=== PATIENT | female | born 1955 | race Caucasian/White ===

== ENCOUNTER 2020-02-18 06:09 | Outpatient (REF) | payer MEDICARE, SELFPAY ==
[2020-02-18 11:13] LABS: MANUAL DIFF FLAG NO
[2020-02-18 11:22] LABS: Basophils Percent Auto 0.5 % (0-2); Eosinophils Absolute Auto 0.1 X10*3/uL (0.0-0.4); Eosinophils Percent Auto 3.5 % (0-4); Hematocrit 39.9 % (37-47); Hemoglobin 12.7 g/dl (12.0-16.0); Imm Gran Abs Auto 0.01 X10*3/uL (0.00-0.03); Imm Gran Pct Auto 0.2 % (0.0-0.4); Lymphocytes Absolute Auto 1.4 X10*3/uL (1.2-4.9); Lymphocytes Percent Auto 34.7 % (20-40); Mean Corpuscular HGB Conc 31.8 g/dl (31.0-35.0); Mean Corpuscular Hemoglobin 29.6 pg (27.0-33.0); Mean Platelet Volume 10.5 fL (9.4-12.3); Monocytes Absolute Auto 0.3 X10*3/uL (0.1-1.2); Monocytes Percent Auto 7.4 % (2-11); Neutrophils Absolute Auto 2.2 X10*3/uL (2.0-8.3); Neutrophils Percent Auto 53.7 % (45-73); Platelet Count 268 X10*3/uL (160-400); Red Blood Count 4.29 X10*6/uL (4.20-5.50); Red Cell Distribution Width 13.1 % (11.0-16.0)
[2020-02-18 11:29] LABS: Glucose Urine UA NEG (NEG); Leukocyte Esterase Urine NEG (NEG); Nitrite Urine NEG (NEG); PH 6.5 (5.0-8.0); Urine Blood NEG (NEG); Urine Ketones NEG (NEG); Urine Protein NEG (NEG-TRACE)
[2020-02-18 11:32] LABS: Appearance Urine CLEAR; Color Urine YELLOW
[2020-02-18 11:39] LABS: Alanine Aminotransferase 20 U/L (0-31); Albumin Level 4.6 g/dL (3.5-5.0); Alkaline Phosphatase 64 U/L (39-117); Anion Gap 14 (12-20); Aspartate Amino Transferase 24 U/L (5-31); Bilirubin Total 0.5 mg/dL (0.0-1.0); Blood Urea Nitrogen 23 mg/dL (9-16); Calcium 9.2 mg/dL (8.4-10.2); Carbon Dioxide 29 mmol/L (22-29); Chloride 102 mmol/L (96-108); Cholesterol 234 mg/dL; Estimated Glomerular Filt Rate > 60; Glucose Fasting 86 mg/dL (60-99); HDL Cholesterol 105 mg/dL; LDL Cholesterol Calculated 117 mg/dl; Potassium 4.5 mmol/l (3.3-5.1); Sodium 140 mmol/L (135-145); Total Protein 7.2 g/dL (6.5-8.0); Triglycerides 61 mg/dL
== END 2020-02-18 06:10 | disposition home or self-care (01) ==
LOC: HO.HMGCLDS 06:09
PROVIDERS: PCP Internal Medicine; Visit Provider Internal Medicine
DX: E78.00 Pure hypercholesterolemia, unspecified (principal)
CPT/HCPCS: 36415; 80053; 80061; 81003; 85025

== ENCOUNTER 2020-03-27 14:19 | Outpatient (REF) | payer MEDICARE, SELFPAY ==
--- NOTE | 2020-03-27 | XR_ITS ---
EXAMINATION: XR SHOULDER, LEFT CLINICAL INFORMATION: Shoulder pain COMPARISON: None TECHNIQUE: AP external rotation, Grashey, scapular Y, and axillary views of the left shoulder. FINDINGS: No fracture or dislocation. Minimal AC joint degeneration. Diffuse bone demineralization. No abnormal soft tissue calcification. XR/XR shoulder LT min 2V IMPRESSION: Minimal AC joint arthritis. No acute osseous abnormality. Osteopenia.
== END 2020-03-27 14:20 | disposition home or self-care (01) ==
LOC: HO.XRAY 14:19
PROVIDERS: PCP Internal Medicine; Visit Provider Internal Medicine
DX: M25.512 Pain in left shoulder (principal)
CPT/HCPCS: 73030

== ENCOUNTER → 2020-04-08 08:41 | Outpatient (BNVA) | payer MEDICARE, SELFPAY | PROVIDERS: PCP Internal Medicine; Visit Provider Orthopaedic Surgery | DX: M75.42 Impingement syndrome of left shoulder (principal) | CPT/HCPCS: 99202 ==

== ENCOUNTER → 2020-07-03 12:29 | Outpatient (BNVA) | payer MEDICARE, SELFPAY | PROVIDERS: PCP Internal Medicine; Visit Provider Orthopaedic Surgery | DX: M75.42 Impingement syndrome of left shoulder (principal) | CPT/HCPCS: 20610; 99212; J1040 ==

== ENCOUNTER 2021-01-21 06:06 | Outpatient (REF) | payer MEDICARE, SELFPAY ==
[2021-01-21 11:36] LABS: MANUAL DIFF FLAG NO
[2021-01-21 11:57] LABS: Basophils Percent Auto 0.5 % (0-2); Eosinophils Absolute Auto 0.2 X10*3/uL (0.0-0.4); Eosinophils Percent Auto 3.8 % (0-4); Hematocrit 40.6 % (37.0-47.0); Imm Gran Abs Auto 0.01 X10*3/uL (0.00-0.03); Imm Gran Pct Auto 0.2 % (0.0-0.4); Lymphocytes Absolute Auto 1.5 X10*3/uL (1.2-4.9); Lymphocytes Percent Auto 34.2 % (20-40); Mean Corpuscular Hemoglobin 29.1 pg (27.0-33.0); Monocytes Absolute Auto 0.3 X10*3/uL (0.1-1.2); Monocytes Percent Auto 7.2 % (2-11); Neutrophils Absolute Auto 2.4 x10*3/uL (2.0-8.3); Neutrophils Percent Auto 54.1 % (45-73); Platelet Count 299 X10*3/uL (160-400); Red Blood Count 4.46 X10*6/uL (4.20-5.50); Red Cell Distribution Width 13.1 % (11.0-16.0); White Blood Count 4.4 X10*3/uL (4.8-10.8)
[2021-01-21 12:53] LABS: Alanine Aminotransferase 26 U/L (0-31); Albumin Level 4.6 g/dL (3.5-5.0); Alkaline Phosphatase 69 U/L (39-117); Anion Gap 15 (12-20); Aspartate Amino Transferase 28 U/L (5-31); Bilirubin Total 0.6 mg/dL (0.0-1.0); Blood Urea Nitrogen 19 mg/dL (9-16); Calcium 9.5 mg/dL (8.4-10.2); Carbon Dioxide 26 mmol/L (22-29); Chloride 102 mmol/L (96-108); Cholesterol 243 mg/dL; Estimated Glomerular Filt Rate > 60; Glucose Fasting 77 mg/dL (60-99); HDL Cholesterol 101 mg/dL; LDL Cholesterol Calculated 132 mg/dl; Potassium 4.2 mmol/L (3.3-5.1); Sodium 139 mmol/L (135-145); Total Protein 7.4 g/dL (6.5-8.0); Triglycerides 53 mg/dL
== END 2021-01-21 06:07 | disposition home or self-care (01) ==
LOC: HO.HMGCLDS 06:06
PROVIDERS: PCP Internal Medicine; Visit Provider Internal Medicine
DX: E78.00 Pure hypercholesterolemia, unspecified (principal); J30.1 Allergic rhinitis due to pollen
CPT/HCPCS: 36415; 80053; 80061; 85025

== ENCOUNTER 2022-01-24 06:09 | Outpatient (REF) | payer MEDICARE, SELFPAY ==
[2022-01-24 11:38] LABS: MANUAL DIFF FLAG NO
[2022-01-24 11:47] LABS: Hematocrit 40.7 % (37.0-47.0); Hemoglobin 12.8 g/dl (12.0-16.0); Mean Corpuscular HGB Conc 31.4 g/dl (31.0-35.0); Mean Corpuscular Hemoglobin 29.2 pg (27.0-33.0); Mean Corpuscular Volume 92.7 fL (80.0-98.0); Red Blood Count 4.39 X10*6/uL (4.20-5.50); White Blood Count 4.4 X10*3/uL (4.8-10.8)
[2022-01-24 11:48] LABS: Basophils Percent Auto 0.7 % (0-2); Eosinophils Absolute Auto 0.2 X10*3/uL (0.0-0.4); Eosinophils Percent Auto 3.8 % (0-4); Imm Gran Abs Auto 0.01 X10*3/uL (0.00-0.03); Imm Gran Pct Auto 0.2 % (0.0-0.4); Lymphocytes Absolute Auto 1.5 X10*3/uL (1.2-4.9); Lymphocytes Percent Auto 33.6 % (20-40); Mean Platelet Volume 10.3 fL (9.4-12.3); Monocytes Absolute Auto 0.3 X10*3/uL (0.1-1.2); Monocytes Percent Auto 6.8 % (2-11); Neutrophils Absolute Auto 2.4 x10*3/uL (2.0-8.3); Neutrophils Percent Auto 54.9 % (45-73); Platelet Count 265 X10*3/uL (160-400); Red Cell Distribution Width 12.8 % (11.0-16.0)
[2022-01-24 12:27] LABS: Alanine Aminotransferase 21 U/L (0-31); Albumin Level 4.5 g/dL (3.5-5.0); Alkaline Phosphatase 55 U/L (39-117); Anion Gap 10 (12-20); Aspartate Amino Transferase 21 U/L (5-31); Bilirubin Total 0.4 mg/dL (0.0-1.0); Blood Urea Nitrogen 13 mg/dL (9-16); Calcium 9.5 mg/dL (8.4-10.2); Carbon Dioxide 29 mmol/L (22-29); Chloride 104 mmol/L (96-108); Cholesterol 243 mg/dL; Estimated Glomerular Filt Rate > 60; Glucose Fasting 96 mg/dL (60-99); HDL Cholesterol 99 mg/dL; LDL Cholesterol Calculated 130 mg/dl; Potassium 4.1 mmol/L (3.3-5.1); Sodium 139 mmol/L (135-145); Total Protein 6.9 g/dL (6.5-8.0); Triglycerides 72 mg/dL
== END 2022-01-24 06:10 | disposition home or self-care (01) ==
LOC: HO.HMGCLDS 06:09
PROVIDERS: PCP Internal Medicine; Visit Provider Internal Medicine
DX: Z00.00 Encounter for general adult medical examination without abnormal findings (principal)
CPT/HCPCS: 36415; 80053; 80061; 82306; 85025

== ENCOUNTER 2023-01-31 06:03 | Outpatient (REF) | payer MEDICARE, SELFPAY ==
[2023-01-31 11:17] LABS: MANUAL DIFF FLAG NO
[2023-01-31 11:24] LABS: Basophils Percent Auto 0.7 % (0-2); Eosinophils Absolute Auto 0.2 X10*3/uL (0.0-0.4); Eosinophils Percent Auto 3.4 % (0-4); Hematocrit 36.1 % (37.0-47.0); Hemoglobin 11.4 g/dl (12.0-16.0); Imm Gran Abs Auto 0.01 X10*3/uL (0.00-0.03); Imm Gran Pct Auto 0.2 % (0.0-0.4); Lymphocytes Absolute Auto 1.2 X10*3/uL (1.2-4.9); Lymphocytes Percent Auto 26.9 % (20-40); Mean Corpuscular HGB Conc 31.6 g/dl (31.0-35.0); Mean Corpuscular Hemoglobin 28.8 pg (27.0-33.0); Mean Corpuscular Volume 91.2 fL (80.0-98.0); Mean Platelet Volume 9.9 fL (9.4-12.3); Monocytes Absolute Auto 0.3 X10*3/uL (0.1-1.2); Monocytes Percent Auto 7.2 % (2-11); Neutrophils Absolute Auto 2.8 x10*3/uL (2.0-8.3); Neutrophils Percent Auto 61.6 % (45-73); Platelet Count 317 X10*3/uL (160-400); Red Blood Count 3.96 X10*6/uL (4.20-5.50); Red Cell Distribution Width 13.2 % (11.0-16.0); White Blood Count 4.5 X10*3/uL (4.8-10.8)
[2023-01-31 12:13] LABS: Alanine Aminotransferase 22 U/L (0-31); Albumin Level 4.2 g/dL (3.5-5.0); Alkaline Phosphatase 76 U/L (39-117); Anion Gap 10 (12-20); Aspartate Amino Transferase 27 U/L (5-31); Bilirubin Total 0.4 mg/dL (0.0-1.0); Blood Urea Nitrogen 17 mg/dL (9-16); Calcium 9.3 mg/dL (8.4-10.2); Carbon Dioxide 29 mmol/L (22-29); Chloride 104 mmol/L (96-108); Cholesterol 218 mg/dL (<200); Estimated Glomerular Filt Rate > 60; Glucose Fasting 88 mg/dL (60-99); HDL Cholesterol 94 mg/dL (>40); LDL Cholesterol Calculated 112 mg/dL (<100); Sodium 139 mmol/L (135-145); Total Protein 7.2 g/dL (6.5-8.0); Triglycerides 61 mg/dL (<150); Vitamin D 25-OH Total 55.3 ng/mL (>30)
== END 2023-01-31 06:04 | disposition home or self-care (01) ==
LOC: HO.HMGCLDS 06:03
PROVIDERS: PCP Internal Medicine; Visit Provider Internal Medicine
DX: E78.00 Pure hypercholesterolemia, unspecified (principal); M81.0 Age-related osteoporosis without current pathological fracture
CPT/HCPCS: 36415; 80053; 80061; 82306; 85025

== ENCOUNTER 2023-04-14 16:03 | Outpatient (REF) | payer MEDICARE, SELFPAY ==
--- NOTE | ~2023-04-14 | XR_ITS ---
EXAMINATION: XR HAND, RIGHT CLINICAL INFORMATION: Pain right hand, swelling. COMPARISON: None available. TECHNIQUE: PA, lateral, and oblique views of the right hand. FINDINGS: Prominent bony exostosis along the distal aspect of the first metacarpal. Bones are diffusely demineralized. Moderate degenerative changes in the first carpometacarpal joint with joint space narrowing and hypertrophic change. Moderate degenerative changes in scattered IP joints. Punctate calcific densities in the soft tissues adjacent to the joints with examples including the second and fourth DIP joints. XR/XR hand RT min 3V IMPRESSION: 1. Prominent bony exostosis along the distal aspect of the first metacarpal. 2. Moderate degenerative changes in the first carpometacarpal joint and scattered IP joints. 3. Recommend follow up imaging in 10-14 days if fracture is suspected.
== END 2023-04-14 16:04 | disposition home or self-care (01) ==
LOC: HO.XRAY 16:03
PROVIDERS: PCP Internal Medicine; Visit Provider Internal Medicine
DX: M79.641 Pain in right hand (principal); R60.0 Localized edema
CPT/HCPCS: 73130

== ENCOUNTER 2023-04-26 13:34 | Outpatient (REF) | payer MEDICARE, SELFPAY ==
[2023-04-26 16:04] LABS: MANUAL DIFF FLAG NO
[2023-04-26 16:12] LABS: Basophils Percent Auto 0.4 % (0-2); Eosinophils Absolute Auto 0.1 X10*3/uL (0.0-0.4); Eosinophils Percent Auto 1.7 % (0-4); Hematocrit 37.5 % (37.0-47.0); Hemoglobin 12.2 g/dl (12.0-16.0); Imm Gran Abs Auto 0.03 X10*3/uL (0.00-0.03); Imm Gran Pct Auto 0.4 % (0.0-0.4); Lymphocytes Absolute Auto 1.3 X10*3/uL (1.2-4.9); Lymphocytes Percent Auto 18.1 % (20-40); Mean Corpuscular HGB Conc 32.5 g/dl (31.0-35.0); Mean Corpuscular Hemoglobin 28.2 pg (27.0-33.0); Mean Corpuscular Volume 86.8 fL (80.0-98.0); Mean Platelet Volume 9.5 fL (9.4-12.3); Monocytes Absolute Auto 0.4 X10*3/uL (0.1-1.2); Monocytes Percent Auto 5.1 % (2-11); Neutrophils Absolute Auto 5.4 x10*3/uL (2.0-8.3); Neutrophils Percent Auto 74.3 % (45-73); Platelet Count 364 X10*3/uL (160-400); Red Blood Count 4.32 X10*6/uL (4.20-5.50); Red Cell Distribution Width 13.5 % (11.0-16.0); White Blood Count 7.2 X10*3/uL (4.8-10.8)
[2023-04-26 16:25] LABS: Alanine Aminotransferase 16 U/L (0-31); Albumin Level 4.3 g/dL (3.5-5.0); Alkaline Phosphatase 82 U/L (39-117); Anion Gap 13 (12-20); Aspartate Amino Transferase 21 U/L (5-31); Bilirubin Total 0.3 mg/dL (0.0-1.0); Blood Urea Nitrogen 20 mg/dL (9-16); Calcium 9.9 mg/dL (8.4-10.2); Carbon Dioxide 28 mmol/L (22-29); Chloride 100 mmol/L (96-108); Estimated Glomerular Filt Rate > 60; Glucose Random 119 mg/dL (60-115); Sodium 137 mmol/L (135-145); Total Protein 7.7 g/dL (6.5-8.0)
== END 2023-04-26 13:35 | disposition home or self-care (01) ==
LOC: HO.HMGCLDS 13:34
PROVIDERS: PCP Internal Medicine; Visit Provider Internal Medicine
DX: E78.00 Pure hypercholesterolemia, unspecified (principal); M81.0 Age-related osteoporosis without current pathological fracture
CPT/HCPCS: 36415; 80053; 85025

== ENCOUNTER 2023-04-28 14:23 | Outpatient (REF) | payer MEDICARE, SELFPAY ==
[2023-04-28 15:00] LABS: Estimated Average Glucose 120 mg/dL; Hemoglobin A1c % 5.8 % (<6.0)
[2023-04-28 15:30] LABS: Erythrocyte Sedimentation Rate 52 MM/HR (0-20)
[2023-04-28 15:36] LABS: Uric Acid 3.3 mg/dL (2.4-5.7)
== END 2023-04-28 14:24 | disposition home or self-care (01) ==
LOC: HO.LAB 14:23
PROVIDERS: PCP Internal Medicine; Visit Provider Internal Medicine
DX: M25.531 Pain in right wrist (principal); R73.9 Hyperglycemia, unspecified
CPT/HCPCS: 36415; 83036; 84550; 85652; 86140

== ENCOUNTER 2023-05-04 09:50 | Outpatient (REF) | payer MEDICARE, SELFPAY ==
--- NOTE | 2023-05-04 09:53 | EMG_ITS ---
Right median and ulnar motor and sensory studies were performed. Right radial sensory and median and lateral antecubital sensory studies were performed and paraspinal muscles were tested with a needle. IMPRESSION: Mild to moderate right median neuropathy across carpal tunnel. MD MILLIE Nuñez/CHEIKH / [id number]
== END 2023-05-04 09:51 | disposition home or self-care (01) ==
LOC: HO.NEURO 09:50
PROVIDERS: PCP Internal Medicine; Visit Provider Internal Medicine
DX: R20.2 Paresthesia of skin (principal); M25.531 Pain in right wrist; R22.33 Localized swelling, mass and lump, upper limb, bilateral
CPT/HCPCS: 95886; 95910

== ENCOUNTER 2023-05-13 09:25 | Observation (INO) | payer MEDICARE, SELFPAY ==
[2023-05-13] VITALS (8 sets, daily range): BP systolic 124–163; BP diastolic 62–83; PULSE 53–67; RESP 12–18; TEMP 36.1–37.6; O2SAT 95–99; BMI 22.3; BMI 22.7
--- NOTE | ~2023-05-13 | MR_ITS ---
EXAMINATION: MR BRAIN WITHOUT CONTRAST CLINICAL INFORMATION: Persistent dizziness and nausea COMPARISON: Same day CT head without contrast. TECHNIQUE: Multiplanar multisequence MR imaging of the brain was obtained without intravenous contrast. FINDINGS: There is no acute infarct on diffusion-weighted imaging. There is no intracranial hemorrhage on iron-sensitive imaging. No extra-axial collection or mass effect/herniation. There are several scattered foci of nonspecific supratentorial white matter T2/FLAIR signal abnormality. No hydrocephalus. The ventricles are normal in morphology and size. The major flow voids at the skull base are preserved. The midline structures are normal. The cerebellar tonsils are normally positioned. The craniocervical junction is normal. Marrow signal is within normal limits. The visualized soft tissues are without significant abnormality. Mild scattered paranasal sinus mucosal thickening. MR/MR head/brain wo con IMPRESSION: No acute infarct or other acute intracranial abnormality
--- NOTE | ~2023-05-13 | CT_ITS ---
EXAMINATION: CT HEAD WITHOUT CONTRAST CLINICAL INFORMATION: Dizziness nausea vomiting COMPARISON: None available. TECHNIQUE: Contiguous axial imaging was performed from the skull base to vertex without intravenous administration of contrast. This CT examination was performed using dose optimization techniques as appropriate, variously including the following: *Automated exposure control *Adjustment of mA and/or kV according to patient size (this includes techniques or standardized protocols for targeted exams where dose is matched to indication/reason for exam; i.e. extremities or head) *Use of iterative reconstruction technique DLP: 524 mGy-cm FINDINGS: There is no evidence of acute intracranial hemorrhage or territorial infarction. Chronic white matter small vessel ischemic changes. No abnormal mass effect or midline shift is seen. Ramos to white matter differentiation is well preserved. No extra-axial fluid collections are identified. The ventricles are normal in size. There is no abnormal attenuation within the brain parenchyma. The osseous structures and soft tissues are normal. The mastoid air cells and visualized portions of the paranasal sinuses are well aerated. CT/CT head/brain wo IV con IMPRESSION: 1. No acute intracranial pathology. 2. Chronic white matter small vessel ischemic changes.
--- NOTE | 2023-05-13 09:51 | ECG_ITS ---
Test Reason : DIZZINESS Blood Pressure : / mmHG Vent. Rate : 058 BPM Atrial Rate : 058 BPM P-R Int : 174 ms QRS Dur : 086 ms QT Int : 406 ms P-R-T Axes : 015 019 039 degrees QTc Int : 398 ms Sinus bradycardia Septal infarct , age undetermined Abnormal ECG No previous ECGs available Referred By: Libby Puente Electronically Signed By:LYUBOV SCANLON MD
[2023-05-13 10:12] LABS: MANUAL DIFF FLAG NO
[2023-05-13 10:17] LABS: Basophils Percent Auto 0.2 % (0-2); Eosinophils Absolute Auto 0.2 X10*3/uL (0.0-0.4); Eosinophils Percent Auto 1.7 % (0-4); Hemoglobin 12.3 g/dl (12.0-16.0); Imm Gran Pct Auto 0.9 % (0.0-0.4); Lymphocytes Absolute Auto 1.3 X10*3/uL (1.2-4.9); Lymphocytes Percent Auto 11.7 % (20-40); Mean Corpuscular HGB Conc 32.4 g/dl (31.0-35.0); Mean Corpuscular Hemoglobin 28.2 pg (27.0-33.0); Mean Corpuscular Volume 87.2 fL (80.0-98.0); Mean Platelet Volume 9.4 fL (9.4-12.3); Monocytes Absolute Auto 0.6 X10*3/uL (0.1-1.2); Monocytes Percent Auto 5.7 % (2-11); Neutrophils Absolute Auto 8.7 x10*3/uL (2.0-8.3); Neutrophils Percent Auto 79.8 % (45-73); Platelet Count 254 X10*3/uL (160-400); Red Blood Count 4.36 X10*6/uL (4.20-5.50); Red Cell Distribution Width 14.4 % (11.0-16.0); White Blood Count 10.9 X10*3/uL (4.8-10.8)
[2023-05-13 10:29] LABS: Alanine Aminotransferase 18 U/L (0-31); Albumin Level 4.1 g/dL (3.5-5.0); Alkaline Phosphatase 68 U/L (39-117); Anion Gap 11 (12-20); Aspartate Amino Transferase 18 U/L (5-31); Bilirubin Total 0.4 mg/dL (0.0-1.0); Blood Urea Nitrogen 21 mg/dL (9-16); Calcium 9.2 mg/dL (8.4-10.2); Carbon Dioxide 29 mmol/L (22-29); Chloride 103 mmol/L (96-108); Creatinine Clr Calc Pharmacy 50.5; Estimated Glomerular Filt Rate > 60; Glucose Random 136 mg/dL (60-115); Lipase 28 U/L (8-78); Potassium 4.1 mmol/L (3.3-5.1); Sodium 139 mmol/L (135-145); Total Protein 6.8 g/dL (6.5-8.0)
[2023-05-13] MEDS: ondansetron HCL 4 MG/2 ML VIAL IVPUSH ×2 (10:41→18:44)
[2023-05-13] MEDS: 0.9 % Sodium Chloride 1,000 ML 999 ML IV (10:41)
[2023-05-13] MEDS: Meclizine HCl 25 MG TABLET PO ×3 (10:41→18:44)
[2023-05-13 10:47] LABS: COVID-19 Test Negative (Negative); IDNOW Serial# 152EDE1D
--- NOTE | 2023-05-13 10:48 | ED_ITS ---
HPI - Dizziness General Chief Complaint: Dizziness Stated Complaint: LT ear discomfort, dizzy, nauseau Time Seen by Provider: 05/13/23 09:47 Source: patient Mode of arrival: ambulatory Limitations: no limitations History of Present Illness HPI Narrative: Patient is a 67-year-old female who presents to the emergency department with her for evaluation of dizziness. She reports that she was on a 2 mi walk this morning when she developed sudden ringing in her left ear followed by severe dizziness described as feeling unsteady in a room spinning sensation with nausea and associated vomiting. Denies any history of similar in the past. Denies palpitations, headache, neck pain, numbness or tingling of the extremities, shortness of breath, chest pain, abdominal pain, confusion. She does report that 3 days ago she completed a 10 day course prednisone for carpal tunnel syndrome to the right wrist for which she is experiencing pain and swelling, otherwise denies any new medications. Related Data Home Medications Medication Instructions Recorded Confirmed No Known Home Meds 04/08/20 04/08/20 Allergies Allergy/AdvReac Type Severity Reaction Status Date / Time Sulfa (Sulfonamide Allergy Rash Verified 07/03/20 12:39 Antibiotics) Penicillins AdvReac yeast Verified 07/03/20 12:39 infections Review of Systems 2 Review of Systems: Yes all other systems are reviewed and are negative PMF Past Medical History Medical History History of ectopic Melanoma Surgical History History of carpal tunnel release S/P trigger finger release Social History Social History Smoked in Last 30 Days: No Use of substances other than those prescribed or required for medical reasons: No Advance Directives: No 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 Physical Exam 2 Vital Signs: Vital Signs: Last Vital Signs Temp 97.8 F 05/13/23 09:41 Pulse 55 05/13/23 11:15 Resp 15 05/13/23 11:15 BP 163/83 H 05/13/23 11:15 Pulse Ox 98 05/13/23 11:15 O2 Del Method Room Air 05/13/23 11:15 BMI result Body Mass Index 22.3 NIH Stroke Scale Internal: Initial- Upon Arrival Level of Consciousness: Alert Level of Consciousness Questions: Answers both questions correctly Level of Consciousness Commands: Performs both tasks correctly Best Gaze: Normal Visual: No visual loss Facial Palsy: Normal Motor Arm (Right): No drift Motor Arm (Left): No drift Motor Leg (Right): No drift Motor Leg (Left): No drift Limb Ataxia: Absent Sensory: Normal Best Language: No aphasia Dysarthia: Normal Extinction and Inattention: No abnormality Score: 0 Course Reevaluation(s) Reevaluation #1: CT of the head is without acute intracranial pathology. After receiving meclizine 25 mg orally she reports no significant improvement in her dizziness or the tinnitus. Upon ambulating she does appear slightly unsteady but is able to walk in a straight path, dizziness persists. Trialed Nicole maneuver which she felt did help the dizziness somewhat upon changing to a sitting position and standing. However upon ambulation she reports persistent dizziness, unsteady feeling and nausea. Reviewed this case with ED attending Dr. Carrillo, who agrees to proceed with MRI imaging for further evaluation to exclude posterior circulation stroke Reevaluation #2: Patient signed out to Vin GONZALEZ pending results of MRI Time: 16:00 Medications Administered Discontinued Medications Generic Name Dose Route Start Last Admin Trade Name Freq PRN Reason Stop Dose Admin Sodium Chloride 1,000 mls @ 999 mls/hr 05/13/23 10:00 05/13/23 11:49 Ns IV 05/13/23 11:00 Infused .Q1H1M [facility] Infusion Meclizine HCl 25 mg 05/13/23 10:07 05/13/23 10:41 Meclizine Hcl 25 Mg Tablet PO 05/13/23 10:08 25 mg ONCE ONE Administration Meclizine HCl 25 mg 05/13/23 13:29 05/13/23 14:17 Meclizine Hcl 25 Mg Tablet PO 05/13/23 13:30 25 mg ONCE ONE Administration Ondansetron HCl 4 mg 05/13/23 09:50 05/13/23 10:41 Ondansetron Hcl 4 Mg/2 Ml Vial IVPUSH 05/13/23 09:51 4 mg ONCE ONE Administration Medical Decision Making Medical Decision Making MDM Narrative: Patient is a 67-year-old female who presents emergency department for evaluation tinnitus, dizziness, nausea/vomiting of sudden onset. Anticipate this is most likely peripheral etiology given its sudden onset severe intensity and episodic nature since beginning, suspect less likely to be central etiology. No focal neurological deficits. No bidirectional nystagmus, as horizontal unidirectional nystagmus. No diplopia, dysarthria, dysphagia. Susanne-Hallpike is positive. Obtain serum labs, she is without anemia, electrolyte abnormality, ARAMIS. High sensitive troponin is below detectable limits EKG revealing a sinus bradycardia with ventricular rate of 58, QTC 398, no ST elevation, no ST depression, no acute ischemic findings, low suspicion for ACS. Viral testing is negative. Differential Diagnosis Differential Diagnoses: The differential diagnosis associated with the presentation includes (As noted above) Admission/Observation Consideration of admission/observation: Escalation of care including admission/observation considered (See narrative above in course narrative for further detail) Lab Data MDM Lab Attestation statement: I reviewed the patient's lab results. (See narrative above) 05/13/23 10:08 05/13/23 10:08 Labs: Lab Results 05/13/23 Range/Units 10:08 WBC 10.9 H (4.8-10.8) X10*3/uL RBC 4.36 (4.20-5.50) X10*6/uL Hgb 12.3 (12.0-16.0) g/dl Hct 38.0 (37.0-47.0) % MCV 87.2 (80.0-98.0) fL MCH 28.2 (27.0-33.0) pg MCHC 32.4 (31.0-35.0) g/dl RDW 14.4 (11.0-16.0) % Plt Count 254 D (160-400) X10*3/uL MPV 9.4 (9.4-12.3) fL Immature Gran % (Auto) 0.9 H (0.0-0.4) % Neut % (Auto) 79.8 H (45-73) % Lymph % (Auto) 11.7 L (20-40) % [place] % (Auto) 5.7 (2-11) % Eos % (Auto) 1.7 (0-4) % Baso % (Auto) 0.2 (0-2) % Lymph # (Auto) 1.3 (1.2-4.9) X10*3/uL [place] # (Auto) 0.6 (0.1-1.2) X10*3/uL Eos # (Auto) 0.2 (0.0-0.4) X10*3/uL Baso # (Auto) 0.0 (0.0-0.2) X10*3/uL Abs Immat Gran (auto) 0.10 H (0.00-0.03) X10*3/uL Absolute Neuts (auto) 8.7 H (2.0-8.3) x10*3/uL Absolute Nucleated RBC 0.000 (0.0-0.012) X10*3/uL Nucleated RBC % (auto) 0.0 (0.0-0.2) /100WBC Sodium 139 (135-145) mmol/L Potassium 4.1 (3.3-5.1) mmol/L Chloride 103 (96-108) mmol/L Carbon Dioxide 29 (22-29) mmol/L Anion Gap 11 L (12-20) BUN 21 H (9-16) mg/dL Creatinine 0.92 (0.5-1.4) mg/dL Estim Creat Clear Calc 50.5 Estimated GFR > 60 Random Glucose 136 H (60-115) mg/dL Calcium 9.2 D (8.4-10.2) mg/dL Total Bilirubin 0.4 (0.0-1.0) mg/dL AST 18 (5-31) U/L ALT 18 (0-31) U/L Alkaline Phosphatase 68 (39-117) U/L Troponin I High Sens < 2.7 (<3.5-17.0) ng/L Total Protein 6.8 (6.5-8.0) g/dL Albumin 4.1 (3.5-5.0) g/dL Lipase 28 (8-78) U/L COVID-19 (BRISA) Negative (Negative) COVID-19 Clin Com See Note Influenza Type A (PCR) NEGATIVE (Negative) Influenza Type B (PCR) NEGATIVE (Negative) RSV RNA Qual (PCR) NEGATIVE (Negative) SARS-CoV-2 RNA (RT-PCR) NEGATIVE (Negative) Independent Interpretation I performed an independent interpretation of an: EKG (As per narrative above) Radiology Impression Discussion of test interpretation with radiology: I have reviewed the radiologist's reading. Radiologist Impression: CT/CT head/brain wo IV con IMPRESSION: 1. No acute intracranial pathology. 2. Chronic white matter small vessel ischemic changes. Independent Historian Clinical information obtained from an independent historian. History obtained from or confirmed by: Spouse (Present who confirms history) Critical Care Time Critical Care Time Critical Care Time: Yes Total Critical Care Time: 50 Attestation: I personally attest to this critical care time spent taking care of the patient exclusive of all other billable procedures was approximately 50 minutes including initial evaluation of patient, ordering tests, CT interpretation, EKG interpretation, medical consultation, documentation, re-evaluation. Discharge Plan Discharge Clinical Impression: Dizziness Patient Disposition: Still a Patient
[2023-05-13 10:54] LABS: Influenza A PCR NEGATIVE (Negative); Influenza B PCR NEGATIVE (Negative); Resp Syncy Virus RNA Qual PCR NEGATIVE (Negative); SARS COV2 PCR INHOUSE NEGATIVE (Negative)
[2023-05-13 11:07] LABS: Troponin-I High Sensitivity < 2.7 ng/L (<3.5-17.0)
--- NOTE | 2023-05-13 14:18 | PC.NURSE ---
pt medicated per order
--- NOTE | 2023-05-13 15:45 | PC.NURSE ---
MRI screening form filled out and faxed to the department. MRI not able to come in until around 1700.
--- NOTE | 2023-05-13 17:34 | PM.IMHP ---
History of Present Illness Date of Service: 05/13/23 Attending physician on admission: Sandra Lomeli Chief Complaint: Dizziness Pt is a 67-year-old female with a PMH significant for?carpal tunnel syndrome bilaterally and osteoporosis, otherwise healthy and not on home prescription medications who presents to the ED for evaluation of intractable dizziness, nausea, and vomiting since this morning. Patient reports she was in her normal state of health this morning when she went on a morning 2 mi walk. During walk patient noticed left ear began ringing and buzzing which has occurred before but usually only lasts a very short period of time. Ringing in her ear persisted after getting home and seemingly worsened as patient felt like she had water in her left ear and that she was listening from under water. She laid down for a time and upon getting up she suddenly felt dizzy and had nausea and vomiting. Was unbalanced and unable to walk without assistance. Describes dizziness as a spinning sensation, but unable to specify whether it feels like the room or she is spinning. Has never had an episode like this before. Denies earache. No headache or acute vision changes. Denies numbness, tingling, weakness in extremities. No fever or chills. Denies shortness of breath. No abdominal pain. Last episode vomiting was earlier in the morning after arriving at the ED. Curently does not feel N/V or dizziness while sitting, but continues to feel dizzy and unbalanced when standing and walking. In the ED pt was slightly hypertensive to 163/83. Labs were grossly unremarkable. No leukocytosis, stable H&H. No electrolyte abnormalities. Renal and hepatic function baseline. Troponin negative. Tested negative for influenza, COVID, RSV. CT?of head negative for acute intracranial pathology, though did show chronic white matter small-vessel ischemic changes. MRI of brain showed no acute infarct or other acute intracranial abnormality. Pt was treated with Ativan 2 mg IV, meclizine 25 mg p.o. x2 doses, ondansetron, and IVF. Pt will be admitted to the hospital under observation for treatment and further evaluation of intractable dizziness. Review of Systems Review of Systems: Dizziness/vertigo Nausea, vomiting Ataxia Buzzing, ringing, presbycusis in left ear Denies earache No headache, acute vision changes Denies numbness, tingling, weakness in extremities [facility] Medical History (Updated 05/14/23 @ 10:08 by Sandra Lomeli MD) Osteoporosis History of ectopic Melanoma Surgical History History of carpal tunnel release S/P trigger finger release Social History Patient Tobacco Use Status: Never used Tobacco Smoked in Last 30 Days: No Use of substances other than those prescribed or required for medical reasons: No Advance Directives: No Advance Directives Information Provided: No Nutrition Risks: No Nutritional Risk 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 Allergies Allergy/AdvReac Type Severity Reaction Status Date / Time Sulfa (Sulfonamide Allergy Rash Verified 07/03/20 12:39 Antibiotics) Penicillins AdvReac yeast Verified 07/03/20 12:39 infections Home Medications Medication Instructions Recorded Confirmed Last Taken Type calcium carbonate 500 mg calcium 500 mg PO DAILY@1800 05/14/23 05/14/23 05/12/23 History (1,250 mg) chewable tablet cholecalciferol (vitamin D3) 25 25 mcg PO DAILY@1800 05/14/23 05/14/23 05/12/23 History mcg (1,000 unit) capsule (Vitamin D3) multivitamin 1 tab PO DAILY@1800 05/14/23 05/14/23 05/12/23 History Physical Exam Vital Signs and Narrative: Vital Signs: Last Vital Signs Temp 97.8 F 05/13/23 09:41 Pulse 55 05/13/23 11:15 Resp 15 05/13/23 11:15 BP 163/83 H 05/13/23 11:15 Pulse Ox 98 05/13/23 11:15 O2 Del Method Room Air 05/13/23 11:15 BMI result Body Mass Index 22.3 Constitutional: Alert, in no acute distress. Mental Status: Oriented to person, place and time. Eyes: Pupils are equal, round, and reactive to light. Ear, Nose, and Throat: Oropharynx clear, mucous membranes moist. Ears and nose without deformities. Trachea midline. Respiratory: Clear to auscultation bilaterally. No wheezing, rales, or rhonchi. Cardiovascular: S1, S2 regular. No murmurs, rubs, or gallops. Gastrointestinal: Abdomen soft, non-tender, non-distended. Normal bowel sounds. Neurologic: Cranial nerves II-XII are grossly intact bilaterally. No focal neurological deficits. Moves all extremities spontaneously. Skin: Warm, dry. Musculoskeletal: No cyanosis or clubbing. Extremities: No edema. Psychiatric: Normal mood and affect. Results Labs 05/13/23 10:08 05/13/23 10:08 Labs: Laboratory Results - last 24 hr 05/13/23 10:08 MCV 87.2 MCH 28.2 MCHC 32.4 RDW 14.4 Plt Count 254 D MPV 9.4 Immature Gran % (Auto) 0.9 H Neut % (Auto) 79.8 H Lymph % (Auto) 11.7 L [place] % (Auto) 5.7 Eos % (Auto) 1.7 Baso % (Auto) 0.2 Lymph # (Auto) 1.3 [place] # (Auto) 0.6 Eos # (Auto) 0.2 Baso # (Auto) 0.0 Abs Immat Gran (auto) 0.10 H Absolute Neuts (auto) 8.7 H Absolute Nucleated RBC 0.000 Nucleated RBC % (auto) 0.0 Anion Gap 11 L Estim Creat Clear Calc 50.5 Estimated GFR > 60 Random Glucose 136 H Calcium 9.2 D Total Bilirubin 0.4 AST 18 ALT 18 Alkaline Phosphatase 68 Troponin I High Sens < 2.7 Total Protein 6.8 Albumin 4.1 Lipase 28 COVID-19 (BRISA) Negative COVID-19 Clin Com See Note Influenza Type A (PCR) NEGATIVE Influenza Type B (PCR) NEGATIVE RSV RNA Qual (PCR) NEGATIVE SARS-CoV-2 RNA (RT-PCR) NEGATIVE Imaging Radiologist's Impressions: Impressions Head CT 05/13/23 11:37 IMPRESSION: 1. No acute intracranial pathology. 2. Chronic white matter small vessel ischemic changes. Assessment and Plan (1) Dizziness: Status: Acute Plan Pt is a 67-year-old female with a PMH significant for?carpal tunnel syndrome bilaterally and osteoporosis, otherwise healthy and not on home prescription medications who presents to the ED for evaluation of intractable dizziness, nausea, and vomiting since this morning. Pt will be admitted to the hospital under observation for treatment and further evaluation of intractable dizziness. Vertigo Most likely BPPV, though Meniere's disease and vestibular neuritis also in the differential CT of head negative; MRI of brain negative for acute infarct or other intracranial abnormality Patient received meclizine, ondansetron, and Ativan in the ED, as well as Nicole maneuver Will treat with scheduled meclizine and ondansetron q.6 hours, Ativan 1 mg p.o. p.r.n. PT evaluation Pt otherwise has no acute medical complaints or no reported chronic medication conditions. Full Code Attending:?Dr. Lomeli DVT Prophylaxis: Lovenox Patient will be admitted to the hospital under observation for treatment and further evaluation of intractable nausea, vomiting, and vertigo. Quality Stroke Does the patient have a stroke diagnosis?: No VTE Prior VTE?: No VTE Risk Level:: Medical - moderate - high VTE Device Contraindication: Treatment Not Indicated VTE Drug Contraindication: N/A - Med Ordered
--- NOTE | 2023-05-13 17:53 | PC.NURSE ---
pt taken to MRI
[2023-05-13] MEDS: Enoxaparin Sodium 40 MG/0.4 ML SYRINGE SUBCUT (18:44)
[2023-05-13] MEDS: LORazepam 2 MG/ML VIAL IVPUSH (18:44)
--- NOTE | 2023-05-13 19:38 | PC.NURSE ---
this rn assumed care of pt @1900 from previous nurse. previous nurse states scanned lovenox injection and meclizine though states medication not given due to provider at bedside. medications given to this rn. this rn made clinical coordinator aware. medications not given by this rn. pt denies dizziness at this time
[2023-05-13] MEDS: 0.9 % Sodium Chloride Flush 3 ML SYRINGE IVFLUSH (21:38)
[2023-05-14 03:20] VITALS: BP 135/69; PULSE 66; RESP 18; TEMP 36.7; O2SAT 97
[2023-05-14 07:32] VITALS: BP 117/69; PULSE 66; RESP 14; TEMP 36.6; O2SAT 96
[2023-05-14] MEDS: 0.9 % Sodium Chloride Flush 3 ML SYRINGE IVFLUSH (08:37)
--- NOTE | 2023-05-14 09:26 | PHA.MEDREC ---
Addendum entered by Debby Oneill [facility] 05/14/23 09:55: Dr. Lomeli notified med rec complete Original Note: Pharmacy Consult ? Medication Reconciliation Pharmacy has completed the medication reconciliation.
--- NOTE | 2023-05-14 10:08 | PM.DS ---
DS: Providers Provider Date of Service: 05/14/23 Date of admission: 05/13/23 18:06 Primary care physician: Keanu Rivera MD DS: Diagnosis Discharge Diagnosis (1) Dizziness: Status: Acute (2) Vertigo: Status: Acute DS: Summary Hospital Course Hospital Course: Admission note HPI Pt is a 67-year-old female with a PMH significant for?carpal tunnel syndrome bilaterally and osteoporosis, otherwise healthy and not on home prescription medications who presents to the ED for evaluation of intractable dizziness, nausea, and vomiting since this morning. Patient reports she was in her normal state of health this morning when she went on a morning 2 mi walk. During walk patient noticed left ear began ringing and buzzing which has occurred before but usually only lasts a very short period of time. Ringing in her ear persisted after getting home and seemingly worsened as patient felt like she had water in her left ear and that she was listening from under water. She laid down for a time and upon getting up she suddenly felt dizzy and had nausea and vomiting. Was unbalanced and unable to walk without assistance. Describes dizziness as a spinning sensation, but unable to specify whether it feels like the room or she is spinning. Has never had an episode like this before. Denies earache. No headache or acute vision changes. Denies numbness, tingling, weakness in extremities. No fever or chills. Denies shortness of breath. No abdominal pain. Last episode vomiting was earlier in the morning after arriving at the ED. Curently does not feel N/V or dizziness while sitting, but continues to feel dizzy and unbalanced when standing and walking. In the ED pt was slightly hypertensive to 163/83. Labs were grossly unremarkable. No leukocytosis, stable H&H. No electrolyte abnormalities. Renal and hepatic function baseline. Troponin negative. Tested negative for influenza, COVID, RSV. CT?of head negative for acute intracranial pathology, though did show chronic white matter small-vessel ischemic changes. MRI of brain showed no acute infarct or other acute intracranial abnormality. Pt was treated with Ativan 2 mg IV, meclizine 25 mg p.o. x2 doses, ondansetron, and IVF. Pt will be admitted to the hospital under observation for treatment and further evaluation of intractable dizziness. Hospital course The patient was admitted for evaluation of vertigo. Had an MRI in ED which was negative for any acute findings. her symptoms could be related to BPPV or effusion in left ear. might need further work up as outpatient. Did not respond to Nicole maneuver. Started on Meclizine and Zofran with good response over the course of hospital stay as nausea and vertigo resolved and she was able to ambulate on halls steadily on her feet. To be discharged on Meclizine and Zofran with a plan to follow with PCP for further work up if needed. Take Meclizine three times daily for the next three days then as needed Zofran as needed for nausea To follow with PCP within 1-2 weeks for left ear hearing problem Time Attestation Discharge Coordination Time (in mins): 22 Quality: Safe Use of Opioids Does Pt have an Active Cancer Diagnosis on the Problem List?: No Quality: Stroke Does the patient have a stroke diagnosis?: No Physical Exam Vital Signs: Vital Signs: Last Vital Signs Temp 97.8 F 05/14/23 07:32 Pulse 66 05/14/23 07:32 Resp 14 05/14/23 07:32 BP 117/69 05/14/23 07:32 Pulse Ox 96 05/14/23 07:32 O2 Del Method Room Air 05/14/23 07:32 BMI result Body Mass Index 22.7 Const: Other: Constitutional : Awake, interactive, not in distress Neck : Normal inspection, Supple Cardiovascular : RRR, no JVP, no lower extremity edema Respiratory : good bilateral air entry, no crackles, wheezes or rhonchi Gastrointestinal: soft, lax, Normal bowel sounds, Non tender Skin : Warm, Dry Neurological : Alert & oriented x3, No focal deficit , CN 2-12 within normal DS: Data Data Completed and Pending Labs on day of discharge: Laboratory Results - last 24 hr 05/13/23 10:08 WBC 10.9 H RBC 4.36 Hgb 12.3 Hct 38.0 MCV 87.2 MCH 28.2 MCHC 32.4 RDW 14.4 Plt Count 254 D MPV 9.4 Immature Gran % (Auto) 0.9 H Neut % (Auto) 79.8 H Lymph % (Auto) 11.7 L [place] % (Auto) 5.7 Eos % (Auto) 1.7 Baso % (Auto) 0.2 Lymph # (Auto) 1.3 [place] # (Auto) 0.6 Eos # (Auto) 0.2 Baso # (Auto) 0.0 Abs Immat Gran (auto) 0.10 H Absolute Neuts (auto) 8.7 H Absolute Nucleated RBC 0.000 Nucleated RBC % (auto) 0.0 Sodium 139 Potassium 4.1 Chloride 103 Carbon Dioxide 29 Anion Gap 11 L BUN 21 H Creatinine 0.92 Estim Creat Clear Calc 50.5 Estimated GFR > 60 Random Glucose 136 H Calcium 9.2 D Total Bilirubin 0.4 AST 18 ALT 18 Alkaline Phosphatase 68 Troponin I High Sens < 2.7 Total Protein 6.8 Albumin 4.1 Lipase 28 COVID-19 (BRISA) Negative COVID-19 Clin Com See Note Influenza Type A (PCR) NEGATIVE Influenza Type B (PCR) NEGATIVE RSV RNA Qual (PCR) NEGATIVE SARS-CoV-2 RNA (RT-PCR) NEGATIVE Imaging MRI - head: Radiologist's impression: ITS Impressions Head CT 05/13/23 11:37 IMPRESSION: 1. No acute intracranial pathology. 2. Chronic white matter small vessel ischemic changes. Brain MRI 05/13/23 18:19 IMPRESSION: No acute infarct or other acute intracranial abnormality Discharge Plan Discharge Anticipated Discharge Date/Time: 05/14/23 10:04 Patient Disposition: Home, Self-Care Discharge Diagnosis: Vertigo Left ear effusion Referrals: Keanu Rivera MD [Primary Care Provider] - 1 Week Discharge Medications: New meclizine 25 mg Tablet 25 mg PO TID Qty: 20 0RF ondansetron 4 mg tablet,disintegrating 4 mg PO Q8H PRN (Reason: nausea and vomiting) Qty: 14 0RF Continued multivitamin Tablet 1 tab PO DAILY@1800 calcium carbonate 500 mg calcium (1,250 mg) Tablet,Chewable 500 mg PO DAILY@1800 cholecalciferol (vitamin D3) [Vitamin D3] 25 mcg (1,000 unit) Capsule 25 mcg PO DAILY@1800 Discharge Orders: Discharge Order (Routine); Ordered 05/14/23 Ordered By: Sandra Lomeli Diet: Advance to usual diet Activity on Discharge: As tolerated Stand Alone Forms: Patient Portal Discharge page Care Plan Goals: Read below Health Concerns: Read below Plan of Treatment: Read below Assessment: You were admitted to the hospital for monitoring of vertigo attack. MRI brain was negative for any acute findings. You were noticed to have mild effusion in your left ear with no signs of infection. responded well to symptomatic management with Meclizine and Zofran. Take Meclizine three times daily for the next three days then as needed Zofran as needed for nausea To follow with PCP within 1-2 weeks for left ear hearing problem Discharge Date/Time: 05/14/23 11:52
--- NOTE | 2023-05-14 11:12 | MHC.CM.PN ---
PT REPORTS SHE LIVES WITH HER AND IS INDEPENDENT WITH CARE SHE HAS NO DME AND NO SERVICES PT REPORTS SHE HAS A HCP, COPY REQUESTED PCP: [facility] NOTICE DELIVERED DCP HOME TODAY WITH NO SERVICES TO TRANSPORT
== END 2023-05-14 11:52 | disposition home or self-care (01) ==
LOC: HO.ED 15:45 → HO.EDOVER 18:24 → HO.S3 20:09
PROVIDERS: Nurse Practitioner Family; Admitting Provider Student in an Organized Health Care Education/Training Program; Emergency Provider Student in an Organized Health Care Education/Training Program; PCP Internal Medicine; Visit Provider Student in an Organized Health Care Education/Training Program
DX: R42 Dizziness and giddiness (principal); H93.12 Tinnitus, left ear; G56.01 Carpal tunnel syndrome, right upper limb; R11.2 Nausea with vomiting, unspecified; G56.03 Carpal tunnel syndrome, bilateral upper limbs; M81.0 Age-related osteoporosis without current pathological fracture; Z11.52 Encounter for screening for COVID-19; Z20.828 Contact with and (suspected) exposure to other viral communicable diseases
CPT/HCPCS: 0241U; 70450; 70551; 80053; 83690; 84484; 85025; 87635; 93005; 96361; 96372; 96374; 96375; 99221; 99285; J1650; J2060; J2405

== ENCOUNTER → 2023-05-13 09:51 | Outpatient (BNV) | payer MEDICARE, SELFPAY | PROVIDERS: Admitting Provider Student in an Organized Health Care Education/Training Program; Emergency Provider Student in an Organized Health Care Education/Training Program; PCP Internal Medicine; Visit Provider Internal Medicine Cardiovascular Disease | DX: R00.1 Bradycardia, unspecified (principal) | CPT/HCPCS: 93010 ==

== ENCOUNTER → 2023-05-13 18:06 | Outpatient (BNV) | payer MEDICARE, SELFPAY | PROVIDERS: Admitting Provider Student in an Organized Health Care Education/Training Program; Emergency Provider Student in an Organized Health Care Education/Training Program; PCP Internal Medicine; Visit Provider Student in an Organized Health Care Education/Training Program | DX: R42 Dizziness and giddiness (principal) | CPT/HCPCS: 99222; 99238 ==

== ENCOUNTER 2023-08-18 11:37 | Outpatient (REF) | payer MEDICARE, SELFPAY ==
[2023-08-18 13:38] LABS: MANUAL DIFF FLAG NO
[2023-08-18 13:48] LABS: Basophils Absolute Auto 0.1 X10*3/uL (0.0-0.2); Basophils Percent Auto 0.9 % (0-2); Eosinophils Absolute Auto 0.2 X10*3/uL (0.0-0.4); Eosinophils Percent Auto 2.5 % (0-4); Hematocrit 36.6 % (37.0-47.0); Imm Gran Abs Auto 0.01 X10*3/uL (0.00-0.03); Imm Gran Pct Auto 0.1 % (0.0-0.4); Lymphocytes Absolute Auto 1.9 X10*3/uL (1.2-4.9); Lymphocytes Percent Auto 29.1 % (20-40); Mean Corpuscular HGB Conc 32.8 g/dl (31.0-35.0); Mean Corpuscular Hemoglobin 28.2 pg (27.0-33.0); Mean Corpuscular Volume 86.1 fL (80.0-98.0); Mean Platelet Volume 9.6 fL (9.4-12.3); Monocytes Absolute Auto 0.6 X10*3/uL (0.1-1.2); Monocytes Percent Auto 8.5 % (2-11); Neutrophils Absolute Auto 3.9 x10*3/uL (2.0-8.3); Neutrophils Percent Auto 58.9 % (45-73); Platelet Count 405 X10*3/uL (160-400); Red Blood Count 4.25 X10*6/uL (4.20-5.50); Red Cell Distribution Width 14.1 % (11.0-16.0); White Blood Count 6.7 X10*3/uL (4.8-10.8)
[2023-08-18 14:27] LABS: Anion Gap 14 (12-20); Blood Urea Nitrogen 15 mg/dL (9-16); C Reactive Protein 2.52 mg/dL (< or = 0.50); Calcium 9.7 mg/dL (8.4-10.2); Carbon Dioxide 26 mmol/L (22-29); Chloride 102 mmol/L (96-108); Estimated Glomerular Filt Rate > 60; Glucose Random 88 mg/dL (60-115); Potassium 3.9 mmol/L (3.3-5.1); Sodium 138 mmol/L (135-145)
[2023-08-18 14:29] LABS: Erythrocyte Sedimentation Rate 59 MM/HR (0-20)
== END 2023-08-18 11:38 | disposition home or self-care (01) ==
LOC: HO.10HDL 11:37
PROVIDERS: Visit Provider Internal Medicine
DX: M81.0 Age-related osteoporosis without current pathological fracture (principal); M19.90 Unspecified osteoarthritis, unspecified site
CPT/HCPCS: 36415; 80048; 82550; 85025; 85652; 86140

== ENCOUNTER 2023-08-31 13:50 | Outpatient (REF) | payer MEDICARE, SELFPAY ==
[2023-08-31 18:13] LABS: Rheumatoid Factor 33.7 IU/mL (<15.0)
[2023-09-01 09:04] LABS: Lyme Abs Screen <0.90 index
[2023-09-06 12:48] LABS: Anti Nuclear Antibody Screen NEGATIVE (NEGATIVE)
== END 2023-08-31 13:51 | disposition home or self-care (01) ==
LOC: HO.HMGCLDS 13:50
PROVIDERS: PCP Internal Medicine; Visit Provider Internal Medicine
DX: M25.50 Pain in unspecified joint (principal); R79.82 Elevated C-reactive protein (CRP)
CPT/HCPCS: 36415; 86038; 86431; 86617; 86618

== ENCOUNTER 2023-09-19 12:36 | Outpatient (REF) | payer MEDICARE, SELFPAY ==
--- NOTE | ~2023-09-19 | MM_ITS ---
EXAMINATION: BONE DENSITOMETRY CLINICAL INDICATION: Asymptomatic menopausal state. COMPARISON: This is the patient's baseline examination. TECHNIQUE: Using a [employer] DXA System (software version: 13.1) manufactured by [employer], dual-energy x-ray absorptiometry was performed of the lumbar spine and left hip. The images are of good technical quality. Summary results are attached. FINDINGS: LEFT FEMUR, NECK: BMD 0.714 g/cm2, Z-score -0.5, T-score -2.3, osteopenia. LEFT FEMUR, TOTAL: BMD 0.743 g/cm2, Z-score -0.5, T-score -2.1, osteopenia. AP SPINE L1-L4: BMD 0.778 g/cm2, Z-score -1.5, T-score -3.4, osteoporosis. IDENTIFIED RISK FACTORS: Menopause, height loss, osteoporosis, rheumatoid arthritis. HISTORY OF FRACTURE: None listed. MEDICATIONS: Calcium supplements or multivitamin, vitamin D. MM/XR DEXA axial skeleton IMPRESSION: 1. DIAGNOSIS: Osteoporosis based on the lowest T-score value of -3.4 in the lumbar spine applying World Health Organization criteria. 2. 10-YEAR FRACTURE RISK PREDICTION, FRAX: According to the guidelines, FRAX calculation should only be performed on patients in the osteopenia bone density category. Therefore, FRAX was not performed on this patient. 3. Treatment Recommendations: NOF guidelines recommend consideration for treatment in postmenopausal women and men age 50 and older presenting with the following: -A hip or vertebral (clinical or morphometric) fracture. -T-score less than or equal to -2.5 at the femoral neck or spine after appropriate evaluation to exclude secondary causes. -Low bone mass at the hip or spine and a 10-year fracture probability by FRAX of greater than or equal to 3% for hip fracture or greater than or equal to 20% for major osteoporotic fracture based on the [place] adapted WHO algorithm. 4. Other Recommendations: All treatment decisions require clinical judgment and consideration of individual patient factors, including patient preferences, comorbidities, previous drug use, risk factors not captured in the FRAX model (e.g. frailty, falls, vitamin D deficiency, increased bone turnover, interval significant decline in bone density) and possible under or overestimation of fracture risk by FRAX. Additional medical evaluation for secondary cause of low bone mineral density may be appropriate. FUTURE SCAN RECOMMENDATION: People with diagnosed cases of osteoporosis or at high risk for fracture should have regular bone mineral density tests. For patients eligible for Medicare, routine testing is allowed once every 2 years. The testing frequency can be increased to one year for patients who have rapidly progressing disease, those who are receiving or discontinuing medical therapy to restore bone mass, or have additional risk factors.
== END 2023-09-19 12:37 | disposition home or self-care (01) ==
LOC: HO.MAMMO 12:36
PROVIDERS: PCP Internal Medicine; Visit Provider Internal Medicine
DX: Z13.820 Encounter for screening for osteoporosis (principal); Z78.0 Asymptomatic menopausal state
CPT/HCPCS: 77080

== ENCOUNTER 2024-01-19 10:40 | Outpatient (REF) | payer MEDICARE, SELFPAY ==
[2024-01-19 13:04] LABS: MANUAL DIFF FLAG NO
[2024-01-19 13:09] LABS: Basophils Percent Auto 0.5 % (0-2); Eosinophils Absolute Auto 0.1 X10*3/uL (0.0-0.4); Eosinophils Percent Auto 2.2 % (0-4); Hematocrit 35.8 % (37.0-47.0); Hemoglobin 11.3 g/dl (12.0-16.0); Imm Gran Abs Auto 0.02 X10*3/uL (0.00-0.03); Imm Gran Pct Auto 0.3 % (0.0-0.4); Lymphocytes Absolute Auto 1.6 X10*3/uL (1.2-4.9); Lymphocytes Percent Auto 24.1 % (20-40); Mean Corpuscular HGB Conc 31.6 g/dl (31.0-35.0); Mean Corpuscular Hemoglobin 25.9 pg (27.0-33.0); Mean Corpuscular Volume 82.1 fL (80.0-98.0); Mean Platelet Volume 9.6 fL (9.4-12.3); Monocytes Absolute Auto 0.5 X10*3/uL (0.1-1.2); Neutrophils Absolute Auto 4.2 x10*3/uL (2.0-8.3); Neutrophils Percent Auto 64.9 % (45-73); Platelet Count 357 X10*3/uL (160-400); Red Blood Count 4.36 X10*6/uL (4.20-5.50); Red Cell Distribution Width 16.4 % (11.0-16.0); White Blood Count 6.5 X10*3/uL (4.8-10.8)
[2024-01-19 13:32] LABS: Alanine Aminotransferase 27 U/L (0-31); Albumin Level 4.3 g/dL (3.5-5.0); Alkaline Phosphatase 85 U/L (39-117); Anion Gap 9 (12-20); Aspartate Amino Transferase 28 U/L (5-31); Bilirubin Total 0.3 mg/dL (0.0-1.0); Blood Urea Nitrogen 21 mg/dL (9-16); C Reactive Protein 0.88 mg/dL (< or = 0.50); Calcium 9.2 mg/dL (8.4-10.2); Carbon Dioxide 27 mmol/L (22-29); Chloride 102 mmol/L (96-108); Cholesterol 184 mg/dL (<200); Estimated Glomerular Filt Rate > 60; Glucose Random 86 mg/dL (60-115); Potassium 4.4 mmol/L (3.3-5.1); Sodium 134 mmol/L (135-145); Total Protein 7.4 g/dL (6.5-8.0)
[2024-01-19 13:53] LABS: Free T4 (Free Thyroxine) 0.86 ng/dL (0.71-1.85)
[2024-01-19 14:13] LABS: Vitamin B12 547 pg/mL (200-900)
== END 2024-01-19 10:41 | disposition home or self-care (01) ==
LOC: HO.HMGCLDS 10:40
PROVIDERS: PCP Internal Medicine; Visit Provider Internal Medicine
DX: M81.0 Age-related osteoporosis without current pathological fracture (principal); M79.10 Myalgia, unspecified site
CPT/HCPCS: 36415; 80053; 82465; 82550; 82607; 82746; 84439; 84443; 85025; 86140

== ENCOUNTER → 2024-04-12 14:35 | Outpatient (BNV) | payer MEDICARE, SELFPAY | PROVIDERS: PCP Internal Medicine; Visit Provider Radiology Diagnostic Radiology | DX: M25.511 Pain in right shoulder (principal) | CPT/HCPCS: 73030 ==

== ENCOUNTER 2024-05-17 13:51 | Outpatient (AMB) | payer MEDICARE, SELFPAY ==
--- NOTE | 2024-05-17 14:14 | MHC.OFFVIS ---
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 Patient reports that she was previously seen by Dr. Rodriguez about 3 years ago and received an injection that helped until recently. She is requesting to repeat injection as she has discomfort with ROM. States currently taking prednisone due to other condition that has helped with her pain. 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 She states she has had pain in the shoulder for quite some time and is worse with overhead reaching lifting and repetitive motion. She was recently prescribed prednisone for PMR which has still the pain however she has some discomfort with reaching behind the back. 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 Full range of motion in all planes. She has crepitus with range of motion and tenderness to palpation over the proximal biceps. Positive Sizerock's. Positive Yuen. 5/5 rotator cuff strength neurovascularly intact Results Reviewed Results Reviewed: XR shoulder RT min 2V IMPRESSION: Mild degenerative changes acromioclavicular joint and greater tuberosity right humerus. Assessment & Plan Assessment & Plan (1) Bursitis of right shoulder: Code(s): M75.51 - Bursitis of right shoulder Category: Medical Plan: We discussed options which include PT, NSAIDs and injections. She will defer on the injection today and proceed with PT and NSAIDs. If symptoms persist she will contact me for an injection, otherwise, prn. Orders: Orders PT Evaluation and Treatment Today M06.211 - Rheumatoid bursitis, right shoulder Coding Level of Care Code Est Pt Level 3 (01759) Complex EM visit Add On G2211 Diagnoses Bursitis of right shoulder M75.51
[2024-05-17 14:16] VITALS: BMI 22.3
--- OUTSIDE RECORDS SUMMARY | 2024-05-17 15:36 | XMS_ITS | Clinical Summary ---
Author Organization [facility] Address [address] [place] [address] Care Team Providers Care Mesh Cutter Name Role Phone Unavailable Primary Care Provider Unavailabl e Social History Tobacco Use Types Packs/Day Years Used Date Smoking Tobacco: Never Assessed Sex and Gender Information Value Date Recorded Sex Assigned at Not on file Gender Identity Not on file Sexual Orientation Not on file Plan of Treatment Health Maintenance Due Date Last Done Comments Hepatitis C Virus Screening 1955 DTaP/Tdap/Td Vaccines (1 - Tdap) 1973 Pneumococcal Vaccines 50+ (1 of 1 - PCV) 2004 Zoster (Shingles) Vaccine (1 of 2) 2004 COVID-19 Vaccine ( - 2023-2 5 season) 2023 RSV Vaccine 60 years and old er and Patients (1 - 1-dose 75+ series) 2029 Hepatitis B Vaccines Aged Out No long er eligible based on patient's age to complete this topic
--- OUTSIDE RECORDS SUMMARY | 2024-05-17 15:36 | XMS_ITS | Patient Health Record ---
Author Organization [facility] Address [address] [place] [address] Care Team Providers Care Statement Services Representative Name Role Phone Keanu Rivera MD Primary Care Provider Negra Esposito Unavailable [phone] Allergies Allergen (clinical drug ingredient) Drug/Non Drug Allergy documented on EMR Reaction Allergy Type Onset Date Status Bactrim Unknown Drug Allergy Active Garlic Unknown Drug Allergy Active Penicillin G Benzathine Unknown Drug Allergy Active shrimp allergenic extract Shrimp (Diagnostic) Unknown Drug Allergy Active Shellfish (FN) Shellfish-derived Products Unknown Drug Allergy Active Reason For Referral No Information Medications Medication SIG (Take, Route, Frequency, Duration) Notes Start Date End Date Status Multivitamin - 1 tablet Orally Once a day for 30 day(s) Active OT Refurbishment - Add metatarsal pad s to b/l inserts for metatarsalgia b/l feet 03/09/2021 Active Vitamin D3 Adult Gummies 25 MCG (1000 UT) 1 tablet Orally Once a day for 30 day(s) Active Immunizations Vaccine Route Administration Date Status Comme nts COVID-19 Moderna Vaccine Unknown 05/30/2020 Administered First Dose: 04/07 09/23 Social History Tobacco Use: Social History Observation Description Date Details (start date - stop date) Former Smoker NA - NA Tobacco Use/Smoking Question Answer Notes Are you a: former smoker Additional Findings: Tobacco Non-User Current no n-smoker Alcohol Screen Question Answer Notes Did you have a drink contain ing alcohol in the past year? Yes How often did you have a dri nk containing alcohol in the past year? 2 to 3 times a week (3 points) Points 3 Interpretation Positive Tobacco use other than smoking: Question Answer Notes Are you an other tobacco user? No Problems Problem Type SNOMED Code ICD Code Onset Dates Problem Status W/U Status Risk Notes Problem [id number] Plantar wart (B07.0) Active confirmed Plan Of Treatment No Information Insurance Providers Payer Name Payer Address Payer Phone Subscriber Number Group Number Insured Name Patient Relationship to Insured Coverage Start Date Coverage End Date [facility] [address] [place] [address] [id number] Liz Murry Self - patient is the insured Medical (General) History Medical History History ICD Code Arthritis Cancer Cataracts Measles Chicken pox Porocheratosis Surgical History Surgery Date(Month/Year) wrist surgery finger surgery Thumb Surgery rectal surgery colonoscopy
== END 2024-05-17 14:43 | disposition home or self-care (01) ==
LOC: HO.HOS 13:51
PROVIDERS: PCP Internal Medicine; Visit Provider Physician Assistant
DX: M75.51 Bursitis of right shoulder (principal)
CPT/HCPCS: 99203; 99213; G2211

== ENCOUNTER → 2024-05-17 13:51 | Outpatient (BNVA) | payer MEDICARE, SELFPAY | PROVIDERS: PCP Internal Medicine; Visit Provider Physician Assistant | DX: M75.51 Bursitis of right shoulder (principal) | CPT/HCPCS: 99212 ==

== ENCOUNTER 2024-06-20 12:43 | Outpatient (RCR) | payer MEDICARE, SELFPAY ==
--- NOTE | 2024-06-20 13:48 | MHC.PT.EP ---
[facility] [place] Office [place] Office [place] Office [address] [phone] F: [phone] F: [phone] F: [phone] F: [phone] Physical Therapy Plan of Care Date of Evaluation: 06/20/24 Date of Surgery: n/a Diagnosis: rheumatoid bursitis, R shoulder Assessment: Patient is a 69 year old female presenting to PT with complaints of pain in her R shoulder. Pt reports onset of pain began 6-8 months ago due to insidious onset. She presents today with impairments in posture and strength. Pt's current occupation is retired, with baseline physical activities including yoga, ADLs, walking. Pt expresses snf goal of getting HEP to do at home. Clinical presentation today is most consistent with signs and sx associated with R shoulder pain. Pt does not want to do formal PT due to not currently having pain. She would like to just work on an HEP. Therefore an HEP for posture and RC stability was provided. Frequency and Duration: The patient will be seen pt does not want to schedule additional appointments Short Term Goals: Pt will be compliant with HEP provided on eval in 1 visit. Production Planning Supervisor Goals: Treatment Plan: Modalities to reduce pain, spasms and effusion. Manual therapy to restore motion and function. Therapeutic exercise to improve strength and flexibility. Neuromuscular re-education for posture and balance. Therapeutic activities to return to functional activities of daily living. Electronically signed by: Brandie Zimmer, PT, DPT, ATC Please sign and return to therapist. Thank you for your referral.
--- NOTE | 2024-07-31 11:13 | MHC.PT.DC ---
[facility] [place] Office [place] Office [place] Office [address] [phone] F: [phone] F: [phone] F: [phone] F: [phone] Physical Therapy Discharge Report Diagnosis: rheumatoid bursitis, R shoulder Date of Surgery: n/a Date of Evaluation: 06/20/24 Date of Discharge: 07/31/24 Treatments to Date: 1 Cancellations to Date: 0 No Shows to Date: 0 Discharge Status: Patient Elected to Stop Discharge Summary: Pt did not want to attend PT. Chart kept open x 30 days a courtesy. Pt to be d/c. Electronically signed by: Brandie Zimmer, PT, DPT, ATC Please sign and return to therapist. Thank you for your referral.
== END 2024-07-31 11:13 | disposition home or self-care (01) ==
LOC: HO.PTCHIC 12:43
PROVIDERS: PCP Internal Medicine; Visit Provider Internal Medicine
DX: M06.211 Rheumatoid bursitis, right shoulder (principal)
CPT/HCPCS: 97110; 97161

== ENCOUNTER 2024-12-03 14:13 | Outpatient (AMB) | payer MEDICARE, SELFPAY ==
--- NOTE | 2024-12-03 14:36 | A.OFFPC_ITS ---
Vital Signs 12/03/24 14:41 Height 5 ft 4 in Weight 60.328 kg BMI 22.8 BP 120/70 Respiration 14 Pulse 75 Pulse Source Pulse Oximeter Temp 98.2 F Temp Source Temporal Artery Scan Pulse Oximetry (%) 98 Oxygen Delivery Method Room Air Intake Visit Reasons: Rash Torpedo Shooter Required: No Accompanied by: Self / Same As Patient Allergies Sulfa (Sulfonamide Antibiotics) Allergy (Verified 12/03/24 14:36) Rash Penicillins Adverse Reaction (Verified 12/03/24 14:36) yeast infections Medication List - Last Reconciled 12/03/24 by CARLOS De León betamethasone dipropionate 0.05% topical calcium carbonate 500 mg PO DAILY@1800 cholecalciferol (vitamin D3) (Vitamin D3) 25 mcg PO DAILY@1800 estradiol 0.01%(0.1mg/gram) 1 g vaginal 3XW famotidine 20 mg PO BID fexofenadine (Allergy Relief (fexofenadine)) 180 mg PO DAILY multivitamin 1 tab PO DAILY@1800 prednisone 5 mg PO DAILY Tobacco use date assessed: 12/03/24 Fall risk assessment: 1 Fall in past year Last assessed Fall Risk: 12/03/24 Dental Screening Dental Screen Date: 12/03/24 Did you have a dental visit in the last 12 months?: Yes Did you have a dental problem in the last 6 months where you did not have access to dental care?: No Was dental information given to patient?: No HPI HPI Comments History of Present Illness Details 69-year-old female with history of autoi mmune labyrinthitis, gout, osteoporosis, malignant melanoma, disseminated superficial actinic porokeratosis, hyperlipidemia, psoriasis presenting to the office today to establish care and for annual physical exam. She currently lives with her . 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 Reports occasional alcohol use on the weekends. She has a remote history of cigarette smoking, smoked for several years in her 20s. No illicit drug use or marijuana. She does endorse following a healthy diet and does perform regular exercise. Autoimmune labyrinthitis-symptoms have stabilized, no ongoing vertigo but does have permanent left-sided hearing loss and wears a hearing aid. Following with Dr. Bentley in [place] for audiology. Osteoporosis-following with Dr. Wolff [facility]. Last DEXA scan 09/2023 T-score lumbar spine -3.4. On Reclast infusions. Taking calcium and vitamin-D as well as participating in weight-bearing exercise/resistance Polymyalgia rheumatica-again Dr. Wolff at the arthritis treatment center. Has been tapering off prednisone with good improvement of her symptoms. She had been bumped down to 2 mg about 2 weeks ago but was increased back to 5 mg due to symptom recurrence. Reports when symptomatic, experiences severe pain in the shoulder and hip girdles which causes her to altered her gait. Porokeratosis-diagnosed in her 30s. Follows with [facility]. Does have history of biopsy years ago but otherwise, rash has been consistent with diagnosis Scalp psoriasis-occasional lesions that respond well to topical corticosteroids. Occasionally also gets nail dystrophy History of cataracts-s/p excision with lens placement On HRT Concerns: Rash ongoing for 2 weeks. Initially located in the left upper back, has now spread across the upper and low back and on the left flank. It is itchy. She reports she did use tide detergent 2 weeks ago which was new but has discontinued this. There have been no vesicular lesions. She is on prednisone chronically and dose recently increased. Has not tried antihistamine. Other than detergent, no new contacts. No new medications or supplements. Did recently h ave URI, but rash does not appear consistent with viral exanthem. No fevers, chills. Health maintenance: Mammograms performed through [facility]. Reports up-to-date. Will request Last DEXA scan 09/2023, 2 year follow-up No longer getting Pap smears but follows annually with [facility] university intern Follows with the eye and [facility], Dr. Campos. Reading glasses only Dental exams twice yearly Skin exams [facility], wear sunscreen Reviewed past medical, surgical, social, family history ROS: General: No fevers, malaise, unintentional weight loss HEENT: No blurred vision, diplopia. No sore throat, nasal congestion, rhinorrhea, sinus pain, ear pain. see hpi Neck - no adenopathy Cardiovascular: No chest pain, palpitations, or leg edema Respiratory: No shortness of breath, wheezing, cough Breast: No pain, palpable lumps, nipple inversion GI: No dysphagia, odynophagia, globus sensation. No abdominal pain, nausea, vomiting, diarrhea, constipation, melena, hematochezia : No dysuria, hematuria, increased urinary frequency, decreased urinary output. 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 see hpi Neuro: No headaches, weakness, paresthesias Psych: no depression/anxiery. No AH/VH. No SI/HI Skin: see hpi EXAM: Constitutional - Awake and Alert, No apparent distress Eyes - PERRLA, EOMI. Anicteric Ears - external ears normal, canals clear, TMs intact and pearly mascorro with good cone of light Nose- septum midline, nares clear, no sinus tenderness Mouth/throat- mucosa moist, tongue and uvula midline, no erythema/edema or tonsillar adenopathy. Neck-trachea midline, thyroid symmetric without palpable nodules, no adenopathy Cardiovascular - S1S2, RRR, No edema Respiratory - Normal lung expansion, Normal respiratory effort, No respiratory distress, CTA bilaterally Gastrointestinal - NT / ND; +BS; No rebound or guarding - No CVA tenderness Extremities - no calf tenderness bilaterally, no swelling Musculoskeletal - Normal inspection, normal ROM Skin - Warm/Dry. Annular dusky erythematous lesions with defined borders about 1 cm with scaling/crusting over the upper and lower extremities bilaterally. Faintly erythematous papular lesions about 1-2 mm in size with some coalescence covering the back and left flank. No vesicular lesions, drainage, excoriation Neurological - Alert & oriented x3, CN II-XII in tact, 5/5 strength BUE and BLE, 2+ patellar reflexes, sensation intact Psychological - Appropriate affect [facility] Medical History (Updated 12/03/24 @ 15:51 by CARLOS De León) Psoriasis Current chronic use of systemic steroids Autoimmune sensorineural hearing loss (SNHL) Labyrinthitis of left ear Porokeratosis Polymyalgia rheumatica Osteoporosis History of ectopic Melanoma Surgical History (Updated 12/03/24 @ 15:50 by CARLOS De León) S/P cataract extraction and insertion of intraocular lens H/O melanoma excision History of carpal tunnel release S/P trigger finger release Family History (Updated 12/03/24 @ 15:14 by CARLOS De León) Father CAD (coronary artery disease) Lung cancer Mother CAD (coronary artery disease) Maternal Grandmother CAD (coronary artery disease) Brother Melanoma Social History Housing: House Patient Tobacco Use Status: Never used Tobacco e-Cigarette/Vaping Use: Never Used service: No Current occupational status: retired 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 1. Little interest or pleasure in doing things: not at all 2. Feeling down, depressed, or hopeless: not at all 3. Trouble falling or staying asleep, or sleeping too much: not at all 4. Feeling tired or having little energy: not at all 5. Poor appetite or overeating: not at all 6. Feeling bad about yourself - or that you are a failure or have let yourself or your family down: not at all 7. Trouble concentrating on things, such as reading the newspaper or watching television: not at all 8. Moving or speaking so slowly that other people could have noticed. Or the opposite - being so fidgety or restless that you have been moving around a lot more than usual: not at all 9. Thoughts that you would be better off or of hurting yourself in some way: not at all Total score: 0 Depression Screening Interpretation: Negative Depression Screening Done: Yes 09894 - PHQ-9 Billing: Yes Source: Developed by Drs. Harshil Church, Elke Dominguez, Hipolito Guajardo and colleagues, with an educational sofia from [employer]. Thrive Questionnaire Date Thrive assessed: 05/14/23 I am a: Patient What is your living situation today?: I have a steady place to live Within the past 12 months, did the food you bought not last and you didn't have the money to get more?: Never true Within the past 12 months, did you worry whether your food would run out before you got money to buy more?: Never true Do you have trouble paying for medicines?: No Do you have trouble getting transportation to medical appointments?: No Do you have trouble paying your heating and electricity bill?: No Do you have trouble taking care of your child, family member or friend?: No Do you have trouble with day-to-day activities such as bathing, preparing meals, shopping, managing finances, etc.?: No Are you currently unemployed and looking for a job?: No Are you interested in more education?: No Please select the resources that you would like help with: None Currently or been in a relationship where the following occur: No concerns reported THRIVE Score: 0 AUDIT C Alcohol Use Questionnaire (AUDIT-C) 1. How often do you have a drink containing alcohol?: 2-4 times a month 2. How many drinks containing alcohol do you have on a typical day when you are drinking?: 1 or 2 Total Score: 2 MARINA-7 AMB Questionnaire MARINA-7 Feeling nervous, anxious, or on edge: 1 = Several days Not being able to stop or control worryin = Not at all Worrying too much about different things: 0 = Not at all Trouble relaxin = Not at all Being so restless that it is hard to sit still: 0 = Not at all Becoming easily annoyed or irritable: 0 = Not at all Feeling afraid as if something awful might happen: 0 = Not at all Total MARINA-7 score (0-4 normal; 5-9 mild; 10-14 moderate; 15-21 severe): 1 Source: Developed by Drs. Harshil Church, Elke Dominguez, Hipolito Guajardo and colleagues, with an educational sofia from [employer]. MARINA-7 Assessment Billing MARINA-7 Assessment Tool: MARINA-7 Assessment 17103 Physical exam (Primary Care) Vital Signs: Last Vital Signs Temp 98.2 F 12/03/24 14:41 Pulse 75 12/03/24 14:41 Resp 14 12/03/24 14:41 BP 120/70 12/03/24 14:41 Pulse Ox 98 12/03/24 14:41 Oxygen Delivery Method Room Air 12/03/24 14:41 BMI result Body Mass Index 22.8 Tobacco/Smoking Status: Tobacco use Status Tobacco use date assessed 12/03/24 12/03/24 14:43 Patient Tobacco Use Status Never used Tobacco 12/03/24 14:43 e-Cigarette/Vaping Use Never Used 12/03/24 14:43 Depression Screening Interpretation: Negative Thrive Assessment: Date of Thrive Assessment Date Thrive assessed 05/14/23 12/03/24 14:43 Currently or been in a relationship where the following occur: No concerns reported Coding Level of Care Code New Pt Prev Care >65yr (47490) Diagnoses Routine medical exam Z00.00 Polymyalgia rheumatica M35.3 Osteoporosis M81.0 Dermatitis L30.9 Porokeratosis Q82.8 Additional Codes MARINA-7 Assessment Billing - MARINA-7 Assessment Tool: MARINA-7 Assessment 03007 ([id number]) PHQ-9 - 17131 - PHQ-9 Billing: Yes ([id number]) Assessment & Plan Assessment & Plan (1) Routine medical exam: Code(s): Z00.00 - Encounter for general adult medical examination without abnormal findings Category: Medical Plan: 69-year-old female presenting for evaluation, to establish care, and annual physical exam. Plan as below (2) Polymyalgia rheumatica: Comment: Dr. Wolff Code(s): M35.3 - Polymyalgia rheumatica Category: Medical Plan: Stable. Continue with prednisone as prescribed. Reviewed last Rheumatology notes, continue following (3) Osteoporosis: Comment: Reclast infusions Code(s): M81.0 - Age-related osteoporosis without current pathological fracture Category: Medical Plan: Reviewed last DEXA scan. Repeat DEXA scan next September. Continue with Reclast infusions and follow-up with Rheumatology as scheduled. Continue calcium and vitamin-D as well as weight-bearing exercise. (4) Dermatitis: Code(s): L30.9 - Dermatitis, unspecified Category: Medical Plan: Unspecified, etiology unclear. No new contacts or irritants. No evidence of bacterial or fungal infection. Recent URI, but not consistent with viral exanthem. Not consistent with eczematous rash or psoriasis. Continue prednisone as prescribed. Add fexofenadine 180 mg daily as well as Pepcid 20 mg twice daily. Can use Benadryl at bedtime as well. Should she not be experiencing relief, can consider increasing prednisone dose down follow-up with Dermatology (5) Porokeratosis: Comment: [facility] Code(s): Q82.8 - Other specified congenital malformations of skin Category: Medical Plan: Uncomplicated. Continue following with [facility] Plan Routine screening labs as ordered below Continue with screening mammograms, Pap smears, colonoscopies Continue following for annual skin exams and use sun protection Annual eye exams Wear seat belt in car Recommend regular exercise and healthy diet Follow-up in the office in 1 year for annual physical exam Orders: Orders Complete Blood Count Auto Diff Today H83.02 - Labyrinthitis, left ear, H90.3 - Sensorineural hearing loss, bilateral, M81.0 - Age-related osteoporosis without current pathological fracture, Z00.00 - Encounter for general adult medical examination without abnormal findings, Z79.52 - prison (current) use of systemic steroids Lipid Panel Today H83.02 - Labyrinthitis, left ear, H90.3 - Sensorineural hearing loss, bilateral, M81.0 - Age-related osteoporosis without current pathological fracture, Z00.00 - Encounter for general adult medical examination without abnormal findings, Z79.52 - terminal makeup operator (current) use of systemic steroids Liver Panel Today H83.02 - Labyrinthitis, left ear, H90.3 - Sensorineural hearing loss, bilateral, M81.0 - Age-related osteoporosis without current pathological fracture, Z00.00 - Encounter for general adult medical examination without abnormal findings, Z79.52 - prison (current) use of systemic steroids TSH reflex Free T4 Today H83.02 - Labyrinthitis, left ear, H90.3 - Sensorineural hearing loss, bilateral, M81.0 - Age-related osteoporosis without current pathological fracture, Z00.00 - Encounter for general adult medical examination without abnormal findings, Z79.52 - prison (current) use of systemic steroids Vitamin D 25-OH Total Today H83.02 - Labyrinthitis, left ear, H90.3 - Sensorineural hearing loss, bilateral, M81.0 - Age-related osteoporosis without current pathological fracture, Z00.00 - Encounter for general adult medical examination without abnormal findings, Z79.52 - prison (current) use of systemic steroids Basic Metabolic Panel Today H83.02 - Labyrinthitis, left ear, H90.3 - Sensorineural hearing loss, bilateral, M81.0 - Age-related osteoporosis without current pathological fracture, Z00.00 - Encounter for general adult medical examination without abnormal findings, Z79.52 - prison (current) use of systemic steroids Hemoglobin A1c Today Z00.00 - Encounter for general adult medical examination without abnormal findings, Z79.52 - prison (current) use of systemic steroids Medications: New fexofenadine (Allergy Relief (fexofenadine)) 180 mg PO DAILY 90 tabs 0RF famotidine 20 mg PO BID 14 tabs 0RF
[2024-12-03 14:41] VITALS: BP 120/70; PULSE 75; RESP 14; TEMP 36.8; O2SAT 98; BMI 22.8
--- OUTSIDE RECORDS SUMMARY | 2024-12-03 15:36 | XMS_ITS | Clinical Summary ---
Author Organization [facility] Address [address] [place] [address] Care Team Providers Care Product Engineer Name Role Phone Unavailable Primary Care Provider Unavailabl e Social History Tobacco Use Types Packs/Day Years Used Date Smoking Tobacco: Never Assessed Comments Unknown Sex and Gender Information Value Date Recorded Sex Assigned at Not on file Legal Sex Female 2:24 PM EDT Gender Identity Not on file Sexual Orientation Not on file Plan of Treatment Health Maintenance Due Date Last Done Comments Advance Care Planning 1955 Hepatitis C Virus Screening 1955 DTaP/Tdap/Td Vaccines (1 - Tdap) 1973 Pneumococcal Vaccines 50+ (1 of 1 - PCV) 2004 Zoster (Shingles) Vaccine (1 of 2) 2004 COVID-19 Vaccine ( - 2023-2 5 season) 2024 RSV Vaccine 60 years and old er and Patients (1 - 1-dose 75+ series) 2029 Hepatitis B Vaccines Aged Out No long er eligible based on patient's age to complete this topic
--- OUTSIDE RECORDS SUMMARY | 2024-12-03 15:36 | XMS_ITS | Patient Health Record ---
[facility] Organization [facility] Address [address] [place] [address] Care Team Providers Care Barber Shop Operator Name Role Phone Keanu Rivera MD Primary Care Provider Negra Esposito Unavailable [phone] Allergies Allergen (clinical drug ingredient) Drug/Non Drug Allergy documented on EMR Reaction Allergy Type Onset Date Status sulfamethoxazole / trimethoprim Bactrim Unknown Drug Allergy Active Garlic Unknown Drug Allergy Active Penicillin G Benzathine Unknown Drug Allergy Active shrimp allergenic extract Shrimp (Diagnostic) Unknown Drug Allergy Active Shellfish (FN) Shellfish-derived Products Unknown Drug Allergy Active Reason For Referral No Information Medications Medication SIG (Take, Route, Frequency, Duration) Notes Start Date End Date Status Multivitamin - 1 tablet Orally Once a day; Duration: 30 day(s) Active OT Refurbishment - Add metatarsal pad s to b/l inserts for metatarsalgia b/l feet 03/09/2021 Active Vitamin D3 Adult Gummies 25 MCG (1000 UT) 1 tablet Orally Once a day; Duration: 30 day(s) Active Immunizations Vaccine Route Administration [...] Problem Status W/U Status Risk Notes Problem Plantar wart ([id number]) Plantar wart (B07.0) Active confirmed Plan Of Treatment No Information Insurance Providers Payer Name Payer Address Payer Phone Subscriber Number Group Number Insured Name Patient Relationship to Insured Coverage Start Date Coverage End Date [facility] [address] [facility] [place] [address] [id number] Liz Murry Self - patient is the insured Medical (General) History Medical History History ICD Code Arthritis Cancer Cataracts Measles Chicken pox Porocheratosis Surgical History Surgery Date(Month/Year) wrist surgery finger surgery Thumb Surgery rectal surgery colonoscopy
--- OUTSIDE RECORDS SUMMARY | 2024-12-03 15:36 | XMS_ITS | Patient Health Record ---
Author Organization [facility] Address [address] [place] [address] Care Team Providers Care Sexton Helper Name Role Phone Miguel (RETIRED) Keanu HIDALGO Primary Care Provide r Harshil Weston [phone] Allergies Allergen (clinical drug ingredient) Drug/Non Drug Allergy documented on EMR Reaction Allergy Type Onset Date Status Sulfa Unknown Drug Allergy Active almonds/nuts/shrimp/ ga rlic/maple & oak trees/tomat (uncoded) Unknown Allergy Active Reason For Referral No Information Medications Medication SIG (Take, Route, Fr equency, Duration) Notes Start Date End Date Status Vitamin D-3 1000 UNIT 1 capsule Orally Once a day Active CoQ10 100 MG 1 capsule with a michael l Orally Once a day Active Multi Vitamin/Minerals Orally Active Problems Problem Type SNOMED Code ICD Code Onset Dates Problem Status W/U Status Risk Notes Problem [id number] Encounter for screening for malignant neoplasm of colon (Z12.11) Active confirmed Problem Screening for malignant neoplasm of rectum ([id number]) Encounter for screening for malignant neoplasm of rectum (Z12.12) Active confirmed Problem [id number] Preprocedural examination (Z01.818) Active confirmed Plan Of Treatment Future Test Test Name Order Date COLONOSCOPY 05/08/2015 Insurance Providers Payer Name Payer Address Payer Phone Subscriber Number Group Number Insured Name Patient Relationship to Insured Coverage Start Date Coverage End Date [facility] [address] [place] [phone] [id number] JAMES DIOP Self - patient is the insured Medical (General) History Medical History History ICD Code Screening colonoscopy 006--negative except for occasional sigmoid diverticulosis and small internal hemorrhoids Denies [place],DM,CVA,Lung disease,renal dise ase Melanoma as below Surgical History Surgery Date(Month/Year) Ectopic Surgery for rectal bleeding after which was done transanally Carpal tunnel-left Tendon repair on both hands Melanoma on right forearm in 2013
== END 2024-12-03 15:27 | disposition home or self-care (01) ==
PROVIDERS: PCP Internal Medicine; Visit Provider Physician Assistant
DX: Z00.00 Encounter for general adult medical examination without abnormal findings (principal); M35.3 Polymyalgia rheumatica; M81.0 Age-related osteoporosis without current pathological fracture; L30.9 Dermatitis, unspecified; Q82.8 Other specified congenital malformations of skin

== ENCOUNTER → 2024-12-03 14:13 | Outpatient (BNVA) | payer MEDICARE, SELFPAY | PROVIDERS: PCP Internal Medicine; Visit Provider Physician Assistant | DX: Z00.00 Encounter for general adult medical examination without abnormal findings (principal); M35.3 Polymyalgia rheumatica; M81.0 Age-related osteoporosis without current pathological fracture; L30.9 Dermatitis, unspecified; Q82.8 Other specified congenital malformations of skin; Z79.52 Long term (current) use of systemic steroids; Z13.31 Encounter for screening for depression | CPT/HCPCS: 96127; 99387 ==

== ENCOUNTER 2024-12-24 06:03 | Outpatient (REF) | payer MEDICARE, SELFPAY ==
--- OUTSIDE RECORDS SUMMARY | 2024-12-24 06:05 | XMS_ITS | Patient Health Record ---
Author Organization [facility] Address [address] [place] [address] Care Team Providers Care Manager Support Name Role Phone Miguel (RETIRED) Keanu HIDALGO Primary Care Provide r Harshil Weston [phone] Allergies Allergen (clinical drug ingredient) Drug/Non Drug [...] Problem Status W/U Status Risk Notes Problem Screening for malignant neoplasm of colon (225080998) Encounter for screening for malignant neoplasm of colon (Z12.11) Active confirmed Problem Screening for malignant neoplasm of rectum (739889041) Encounter for screening for malignant neoplasm of rectum (Z12.12) Active confirmed Problem Preprocedural examination (219229119937457) Preprocedural examination (Z01.818) Active confirmed Plan Of Treatment Future Test Test Name Order Date COLONOSCOPY 05/08/2015 Insurance Providers Payer Name Payer Address Payer Phone Subscriber Number Group Number Insured Name Patient Relationship to Insured Coverage Start Date Coverage End Date [facility] [address] [place] [address] [id number] JAMES DIOP Self - patient is the insured Medical (General) History Medical History History ICD Code Screening colonoscopy 05-25- 006--negative except for occasional sigmoid diverticulosis and small internal hemorrhoids Denies [place],DM,CVA,Lung disease,renal dise ase Melanoma as below Surgical History Surgery Date(Month/Year) Ectopic Surgery for rectal bleeding after which was done transanally Carpal tunnel-left Tendon repair on both hands Melanoma on right forearm in 2013
--- OUTSIDE RECORDS SUMMARY | 2024-12-24 06:05 | XMS_ITS | Patient Health Record ---
Author Organization [facility] Address [address] [place] [address] Care Team Providers Care Redevelopment Specialist Name Role Phone Keanu Rivera MD Primary Care Provider Negra Esposito Unavailable [phone] Allergies Allergen (clinical drug ingredient) Drug/Non Drug [...] W/U Status Risk Notes Problem Plantar wart (10096444) Plantar wart (B07.0) Active confirmed Plan Of Treatment No Information Insurance Providers Payer Name Payer Address Payer Phone Subscriber Number Group Number Insured Name Patient Relationship to Insured Coverage Start Date Coverage End Date [facility] [address] [place] [address] [phone] [id number] Liz Murry Self - patient is the insured Medical (General) History Medical History History ICD Code Arthritis Cancer Cataracts Measles Chicken pox Porocheratosis Surgical History Surgery Date(Month/Year) wrist surgery finger surgery Thumb Surgery rectal surgery colonoscopy
--- OUTSIDE RECORDS SUMMARY | 2024-12-24 06:05 | XMS_ITS | Clinical Summary ---
Author Organization [facility] Address [address] [place] [address] Care Team Providers Care Welder Gas Tungsten Arc Name Role Phone Unavailable Primary Care Provider [...] - 2023-2 5 season) 2024 RSV Vaccine 50 years and old er and Patients (1 - 1-dose 75+ series) 2029 Hepatitis B Vaccines Aged Out No long er eligible based on patient's age to complete this topic
[2024-12-24 10:46] LABS: MANUAL DIFF FLAG NO
[2024-12-24 10:52] LABS: Hematocrit 38.1 % (37.0-47.0); Hemoglobin 11.9 g/dl (12.0-16.0); Imm Gran Abs Auto 0.05 X10*3/uL (0.00-0.03); Imm Gran Pct Auto 0.7 % (0.0-0.4); Lymphocytes Absolute Auto 1.9 X10*3/uL (1.2-4.9); Mean Corpuscular HGB Conc 31.2 g/dl (31.0-35.0); Mean Corpuscular Hemoglobin 27.9 pg (27.0-33.0); Mean Corpuscular Volume 89.4 fL (80.0-98.0); NRBC Abs Auto 0.000 X10*3/uL (0.0-0.012); NRBC Pct Auto 0.0 /100WBC (0.0-0.2); Platelet Count 293 X10*3/uL (160-400); Red Blood Count 4.26 X10*6/uL (4.20-5.50); White Blood Count 6.7 X10*3/uL (4.8-10.8)
[2024-12-24 12:05] LABS: Alanine Aminotransferase 26 U/L (0-31); Albumin Level 4.3 g/dL (3.5-5.0); Alkaline Phosphatase 57 U/L (39-117); Anion Gap 10 (12-20); Aspartate Amino Transferase 26 U/L (5-31); Blood Urea Nitrogen 20 mg/dL (9-16); Calcium 9.2 mg/dL (8.4-10.2); Carbon Dioxide 29 mmol/L (22-29); Chloride 105 mmol/L (96-108); Cholesterol 236 mg/dL (<200); Estimated Glomerular Filt Rate > 60; HDL Cholesterol 101 mg/dL (>40); Potassium 4.1 mmol/L (3.3-5.1); Sodium 140 mmol/L (135-145); Total Protein 6.9 g/dL (6.5-8.0); Triglycerides 78 mg/dL (<150)
[2024-12-24 15:01] LABS: Free T4 (Free Thyroxine) 0.94 ng/dL (0.71-1.85)
== END 2024-12-24 06:04 | disposition home or self-care (01) ==
LOC: HO.HMGCLDS 06:03
PROVIDERS: PCP Physician Assistant; Visit Provider Physician Assistant
DX: Z00.00 Encounter for general adult medical examination without abnormal findings (principal); H90.3 Sensorineural hearing loss, bilateral; Z79.52 Long term (current) use of systemic steroids; Z13.1 Encounter for screening for diabetes mellitus; Z13.29 Encounter for screening for other suspected endocrine disorder; Z13.6 Encounter for screening for cardiovascular disorders; H83.02 Labyrinthitis, left ear; M81.0 Age-related osteoporosis without current pathological fracture
CPT/HCPCS: 36415; 80048; 80061; 80076; 82306; 83036; 84439; 84443; 85025